=== PATIENT | female | born 1930 | race Caucasian/White ===

== ENCOUNTER 2017-12-26 10:06 | Day surgery (SDC) | payer MEDICARE, BC ==
[2017-12-21 12:41] LABS: BASOPHILS % (AUTO) 0.3 % (0-1); EOSINOPHILS # (AUTO) 0.2 X10'3 (0-0.9); EOSINOPHILS % (AUTO) 2.6 % (0-6); LYMPHOCYTES # (AUTO) 1.7 X10'3 (1.1-4.8); LYMPHOCYTES % (AUTO) 21.1 % (21-51); MEAN CORPUSCULAR HEMOGLOBIN 31.3 PG (27.0-31.0); MEAN CORPUSCULAR HGB CONC 33.4 % (33.0-36.5); MEAN CORPUSCULAR VOLUME 93.8 FL (78-98); MEAN PLATELET VOLUME 9.3 FL (7.4-10.4); MONOCYTES # (AUTO) 0.8 X10'3 (0-0.9); MONOCYTES % (AUTO) 9.8 % (2-12); NEUTROPHILS # (AUTO) 5.3 X10'3 (1.8-7.7); NEUTROPHILS % (AUTO) 66.2 % (42-75); PRE OP HEMATOCRIT 41.5 % (35.0-45.0); PRE OP HEMOGLOBIN 13.9 g/dL (12.0-16.0); PRE OP PLATELET COUNT 217 X10'3 (140-440); RED BLOOD COUNT 4.42 X10'6 (4.20-5.60); RED CELL DISTRIBUTION WIDTH 13.8 % (11.5-14.5)
[2017-12-21 12:52] LABS: ALBUMIN 3.8 G/DL (3.4-5.0); BLOOD UREA NITROGEN 22 MG/DL (7-18); BUN/CREATININE RATIO 20.8 (6.6-38.0); CHLORIDE 102 MMOL/L (99-107); CREATININE 1.06 MG/DL (0.40-0.90); PRE OP ANION GAP 8 (8-16); PRE OP GLUCOSE 90 MG/DL (70-104); PRE OP POTASSIUM 4.2 MMOL/L (3.4-5.1); PRE OP SODIUM 140 MMOL/L (135-145); TOTAL CARBON DIOXIDE 30.5 MMOL/L (24-32); eGFR 49 ML/MIN
[2017-12-21 13:05] LABS: PRE OP INR 1.1 INR
[2017-12-26] VITALS (14 sets, daily range): BP systolic 117–151; BP diastolic 63–83
[~2017-12-26] VITALS: Ht 165.1 cm; Wt 82.5 kg
[2017-12-26] MEDS ORDERED: DILT60TA41 PO (10:43)
[2017-12-26] MEDS ORDERED: MIDAZolam 5mg/ml 2ml vial IV ONE (10:55)
[2017-12-26] MEDS ORDERED: normal saline 1000ml 1,000 ML IV SCH (10:55)
[2017-12-26] MEDS ORDERED: fentaNYL/PF 50MCG/1 ML 2ML syringe IV ONE (10:55)
[2017-12-26] MEDS ORDERED: AMIO200T27 PO (11:06)
[2017-12-26] MEDS ORDERED: APIX5TAB3 PO (11:07)
[2017-12-26] MEDS ORDERED: MIRA25TA PO (11:08)
[2017-12-26] MEDS ORDERED: CALC-1197 PO (11:09)
== END 2017-12-26 14:45 | disposition home or self-care (01) ==
LOC: SSTAY O 10:06
PROVIDERS: ATTEND Internal Medicine Interventional Cardiology
DX: I48.0 Paroxysmal atrial fibrillation (principal); I49.1 Atrial premature depolarization; Z85.41 Personal history of malignant neoplasm of cervix uteri; Z85.3 Personal history of malignant neoplasm of breast; Z79.01 Long term (current) use of anticoagulants; Z88.2 Allergy status to sulfonamides; Z91.041 Radiographic dye allergy status; Z88.1 Allergy status to other antibiotic agents; Z87.891 Personal history of nicotine dependence; Z90.89 Acquired absence of other organs; Z72.89 Other problems related to lifestyle; Z86.79 Personal history of other diseases of the circulatory system; Z90.710 Acquired absence of both cervix and uterus; Z79.899 Other long term (current) drug therapy; Z98.890 Other specified postprocedural states
CPT/HCPCS: 36415; 80048; 85025; 85610; 85730; 92960; 93005; J2250; J3010; J7030; A4620

== ENCOUNTER 2019-07-11 20:14 | Emergency (ER) | payer MEDICARE, BC ==
[~2019-07-11] VITALS: Ht 162.6 cm; Wt 72.6 kg
[~2019-07-11 20:14] MED LIST: AMIO200T27 PO; APIX5TAB3 PO; CALC-1197 PO; DILT60TA41 PO; MIRA25TA PO
[2019-07-11 21:07] LABS: HEMATOCRIT 42.9 % (35.0-45.0); HEMOGLOBIN 14.1 g/dl (12.0-16.0); MEAN CORPUSCULAR HEMOGLOBIN 31.9 PG (27.0-31.0); MEAN CORPUSCULAR HGB CONC 32.9 g/dL (33.0-36.5); MEAN CORPUSCULAR VOLUME 96.9 FL (78-98); MEAN PLATELET VOLUME 9.8 FL (7.4-10.4); PLATELET COUNT 173 X10'3 (140-440); RED BLOOD COUNT 4.43 X10'6 (4.20-5.60); RED CELL DISTRIBUTION WIDTH 13.6 % (11.5-14.5); WHITE BLOOD COUNT 8.4 X10'3 (4.5-11.0)
[2019-07-11 21:17] LABS: CLARITY,URINE CLOUDY (Clear); COLOR,URINE YELLOW (Yellow); GLUCOSE, URINE NEGATIVE (Neg); KETONES,URINE NEGATIVE (Neg); LEUKOCYTE ESTERASE ,URINE TRACE (Neg); NITRITES, URINE NEGATIVE (Neg); OCCULT BLOOD,URINE LARGE (Neg); PROTEIN,URINE NEGATIVE (Neg); UROBILINOGEN,URINE 0.2 E.U/dL (0.2-1.0)
[2019-07-11 21:19] LABS: UA COLLECTION TYPE VOIDED
--- NOTE | 2019-07-11 21:20 | NUR ---
PER MD CEJA PT NO LONGER ON TRAUMA.
[2019-07-11 21:23] LABS: ALANINE AMINOTRANSFERASE 24 U/L (12-78); ALBUMIN 3.5 G/DL (3.4-5.0); ALBUMIN/GLOBULIN RATIO 0.9 (1.1-1.5); ALKALINE PHOSPHATASE 83 IU/L (46-116); ANION GAP 11 (8-16); ASPARTATE AMINO TRANSFERASE 25 U/L (10-37); BILIRUBIN,TOTAL 0.3 MG/DL (0.1-1.0); BLOOD UREA NITROGEN 20 MG/DL (7-18); BUN/CREATININE RATIO 18.9 (6.6-38.0); CHLORIDE 106 MMOL/L (99-107); CREATININE 1.06 MG/DL (0.40-0.90); GLUCOSE 119 MG/DL (70-104); SODIUM 141 MMOL/L (135-145); TOTAL CARBON DIOXIDE 24.2 MMOL/L (24-32); TOTAL PROTEIN 7.3 G/DL (6.4-8.2); eGFR 49 ML/MIN
[2019-07-11 21:24] LABS: BACTERIA,URINE NONE SEEN /HPF (Neg); MUCUS STRANDS NONE SEEN /LPF (Neg); RBC,URINE 50-100 /HPF (0-2); SQUAMOUS EPITHELIAL CELL,UR MODERATE /LPF (FEW); WBC,URINE 0-4 /HPF (0-4)
[2019-07-11 21:25] VITALS: BP 93/68
[2019-07-11 21:26] LABS: PARTIAL THROMBOPLASTIN TIME 22 SECONDS (22-32); POTASSIUM 4.3 MMOL/L (3.5-5.1)
[2019-07-11 21:27] LABS: ETHANOL 0.053 GM/DL (0.0-0.010); TROPONIN I < 0.04 NG/ML (0.0-0.05)
[2019-07-11 21:30] LABS: URINE AMPHETAMINE SCREEN NEGATIVE (Neg); URINE BARBITUATE SCREEN NEGATIVE (Neg); URINE BENZODIAZEPINES SCREEN NEGATIVE (Neg); URINE CANNABINOID SCREEN NEGATIVE (Neg); URINE COCAINE SCREEN NEGATIVE (Neg); URINE METHADONE SCREEN NEGATIVE (Neg); URINE OPIATE SCREEN NEGATIVE (Neg); URINE PHENCYCLIDINE SCREEN NEGATIVE (Neg)
[2019-07-11] MEDS ORDERED: HYDROcodone/acetaminophen 10/325mg tab PO ONE (21:35)
[2019-07-11 22:27] LABS: EOSINOPHILS % (MANUAL) 5 % (0-6); LYMPHOCYTES % (MANUAL) 23 % (21-51); MONOCYTES % (MANUAL) 18 % (2-12); NEUTROPHILS % (MANUAL) 54 % (42-75); TOTAL CELLS COUNTED 100
[2019-07-11 22:28] LABS: PLATELET ESTIMATE NORMAL
[2019-07-11] MEDS ORDERED: HYDR-4353 PO (22:34)
== END 2019-07-11 22:45 | disposition home or self-care (01) ==
LOC: ER 20:15
DX: S52.021A Displaced fracture of olecranon process without intraarticular extension of right ulna, initial encounter for closed fracture (principal); S80.01XA Contusion of right knee, initial encounter; S09.90XA Unspecified injury of head, initial encounter; I48.91 Unspecified atrial fibrillation; Z98.890 Other specified postprocedural states; Z90.710 Acquired absence of both cervix and uterus; Z86.73 Personal history of transient ischemic attack (TIA), and cerebral infarction without residual deficits; Z88.2 Allergy status to sulfonamides; Z88.1 Allergy status to other antibiotic agents; Z79.899 Other long term (current) drug therapy; W01.198A Fall on same level from slipping, tripping and stumbling with subsequent striking against other object, initial encounter; Y93.89 Activity, other specified; Y92.89 Other specified places as the place of occurrence of the external cause; Y99.9 Unspecified external cause status
CPT/HCPCS: 29105; 36415; 70450; 73030; 73080; 73564; 80053; 80305; 80320; 81001; 84484; 85007; 85027; 85610; 85730; 87088; 93005; 99284

== ENCOUNTER 2019-11-20 16:21 | Emergency (ER) | payer MEDICARE, BC ==
[~2019-11-20] VITALS: Ht 162.6 cm; Wt 73.6 kg
--- NOTE | 2019-11-20 17:09 | NUR ---
Patient ambulated to room with steady gait, daughter at bedside. Old dressing removed. Awaiting orders.
[2019-11-20] MEDS ORDERED: LIDOcaine 1% W/epiNEPHrine 1:200,000 10ml vial IJ ONE (17:30)
[2019-11-20] MEDS ORDERED: AMOX-422 PO (17:59)
[2019-11-20] MEDS ORDERED: DOXY100C76 PO (17:59)
[2019-11-20 18:12] VITALS: BP 138/90
--- NOTE | 2019-11-23 19:11 | NUR ---
CONTACTED PT WITH RECOMMENDATIONS TO STOP AUGMENTIN AND DOXYCYCLINE AND TO START CLINDAMYCIN 300 MG PO qID [id number] PRESCRIBED BY DR MERRITT CALLED IN TO [facility].
== END 2019-11-20 18:17 | disposition home or self-care (01) ==
LOC: ER 16:22
DX: L02.413 Cutaneous abscess of right upper limb (principal); I48.91 Unspecified atrial fibrillation; Z86.73 Personal history of transient ischemic attack (TIA), and cerebral infarction without residual deficits; Z98.890 Other specified postprocedural states; Z90.710 Acquired absence of both cervix and uterus; Z88.2 Allergy status to sulfonamides; Z88.1 Allergy status to other antibiotic agents; Z79.899 Other long term (current) drug therapy
CPT/HCPCS: 10060; 87070; 87077; 87186; 99284

== ENCOUNTER 2019-11-26 08:37 | Day surgery (SDC) | payer MEDICARE, BC ==
[~2019-11-26 08:37] MED LIST changes: +AMOX-422 PO; +DOXY100C76 PO
[2019-11-26] MEDS ORDERED: LIDOcaine 2% 5ml jelly ONE (09:21)
== END 2019-11-26 10:00 | disposition home or self-care (01) ==
LOC: WOUND CARE 08:37
PROVIDERS: ATTEND Nurse Practitioner Family
DX: T81.31XA Disruption of external operation (surgical) wound, not elsewhere classified, initial encounter (principal); L98.492 Non-pressure chronic ulcer of skin of other sites with fat layer exposed; H35.00 Unspecified background retinopathy; I48.91 Unspecified atrial fibrillation; Z87.891 Personal history of nicotine dependence; Z86.73 Personal history of transient ischemic attack (TIA), and cerebral infarction without residual deficits; Z85.41 Personal history of malignant neoplasm of cervix uteri; Z90.710 Acquired absence of both cervix and uterus; Z79.899 Other long term (current) drug therapy; Z98.890 Other specified postprocedural states; Y92.89 Other specified places as the place of occurrence of the external cause; Y83.8 Other surgical procedures as the cause of abnormal reaction of the patient, or of later complication, without mention of misadventure at the time of the procedure
CPT/HCPCS: 97597

== ENCOUNTER 2019-11-29 09:25 | Day surgery (SDC) | payer MEDICARE, BC ==
[2019-11-29] MEDS ORDERED: LIDOcaine 2% 5ml jelly ONE (10:08)
== END 2019-11-29 11:06 | disposition home or self-care (01) ==
LOC: WOUND CARE 09:25
PROVIDERS: ATTEND Surgery
DX: T81.31XD Disruption of external operation (surgical) wound, not elsewhere classified, subsequent encounter (principal); L98.492 Non-pressure chronic ulcer of skin of other sites with fat layer exposed; H35.00 Unspecified background retinopathy; I48.91 Unspecified atrial fibrillation; Z87.891 Personal history of nicotine dependence; Z86.73 Personal history of transient ischemic attack (TIA), and cerebral infarction without residual deficits; Z85.41 Personal history of malignant neoplasm of cervix uteri; Z90.710 Acquired absence of both cervix and uterus; Z79.899 Other long term (current) drug therapy; Z98.890 Other specified postprocedural states; Y83.8 Other surgical procedures as the cause of abnormal reaction of the patient, or of later complication, without mention of misadventure at the time of the procedure
CPT/HCPCS: 73070; 97597

== ENCOUNTER 2019-12-05 09:25 | Day surgery (SDC) | payer MEDICARE, BC ==
[~2019-12-05 09:25] MED LIST changes: -AMOX-422 PO; -DOXY100C76 PO
== END 2019-12-05 11:04 | disposition home or self-care (01) ==
LOC: WOUND CARE 09:25
PROVIDERS: ATTEND Surgery
DX: T81.31XD Disruption of external operation (surgical) wound, not elsewhere classified, subsequent encounter (principal); L98.492 Non-pressure chronic ulcer of skin of other sites with fat layer exposed; H35.00 Unspecified background retinopathy; I48.91 Unspecified atrial fibrillation; Z87.891 Personal history of nicotine dependence; Z86.73 Personal history of transient ischemic attack (TIA), and cerebral infarction without residual deficits; Z85.41 Personal history of malignant neoplasm of cervix uteri; Z90.710 Acquired absence of both cervix and uterus; Z79.899 Other long term (current) drug therapy; Z98.890 Other specified postprocedural states; Y83.8 Other surgical procedures as the cause of abnormal reaction of the patient, or of later complication, without mention of misadventure at the time of the procedure
CPT/HCPCS: 97597

== ENCOUNTER 2019-12-13 10:00 | Day surgery (SDC) | payer MEDICARE, BC ==
[2019-12-13] MEDS ORDERED: LIDOcaine 2% 5ml jelly ONE (10:38)
== END 2019-12-13 11:36 | disposition home or self-care (01) ==
LOC: WOUND CARE 10:00
PROVIDERS: ATTEND Surgery
DX: T81.31XD Disruption of external operation (surgical) wound, not elsewhere classified, subsequent encounter (principal); L98.492 Non-pressure chronic ulcer of skin of other sites with fat layer exposed; L02.818 Cutaneous abscess of other sites; H35.00 Unspecified background retinopathy; I48.91 Unspecified atrial fibrillation; Z87.891 Personal history of nicotine dependence; Z86.73 Personal history of transient ischemic attack (TIA), and cerebral infarction without residual deficits; Z85.41 Personal history of malignant neoplasm of cervix uteri; Z90.710 Acquired absence of both cervix and uterus; Z79.899 Other long term (current) drug therapy; Z98.890 Other specified postprocedural states; Y83.8 Other surgical procedures as the cause of abnormal reaction of the patient, or of later complication, without mention of misadventure at the time of the procedure
CPT/HCPCS: 97597; A4663; A6154; A6212

== ENCOUNTER 2019-12-25 08:30 | Day surgery (SDC) | payer MEDICARE, BC ==
[2019-12-25] MEDS ORDERED: LIDOcaine/PRILOcaine 5gm cream TP ONE (09:18)
== END 2019-12-25 10:18 | disposition home or self-care (01) ==
LOC: WOUND CARE 08:30
PROVIDERS: ATTEND Surgery
DX: T81.31XD Disruption of external operation (surgical) wound, not elsewhere classified, subsequent encounter (principal); L98.492 Non-pressure chronic ulcer of skin of other sites with fat layer exposed; L02.818 Cutaneous abscess of other sites; H35.00 Unspecified background retinopathy; I48.91 Unspecified atrial fibrillation; Z87.891 Personal history of nicotine dependence; Z86.73 Personal history of transient ischemic attack (TIA), and cerebral infarction without residual deficits; Z85.41 Personal history of malignant neoplasm of cervix uteri; Z90.710 Acquired absence of both cervix and uterus; Z79.899 Other long term (current) drug therapy; Z98.890 Other specified postprocedural states; Y83.8 Other surgical procedures as the cause of abnormal reaction of the patient, or of later complication, without mention of misadventure at the time of the procedure
CPT/HCPCS: 97597

== ENCOUNTER 2019-12-31 05:41 | Day surgery (SDC) | payer MEDICARE, BC ==
[2019-12-27 16:14] LABS: BASOPHILS % (AUTO) 0.7 % (0-1); EOSINOPHILS # (AUTO) 0.2 X10'3 (0-0.9); EOSINOPHILS % (AUTO) 2.3 % (0-6); LYMPHOCYTES # (AUTO) 1.5 X10'3 (1.1-4.8); LYMPHOCYTES % (AUTO) 21.9 % (21-51); MEAN CORPUSCULAR HEMOGLOBIN 30.6 PG (27.0-31.0); MEAN CORPUSCULAR VOLUME 92.7 FL (78-98); MEAN PLATELET VOLUME 9.9 FL (7.4-10.4); MONOCYTES # (AUTO) 0.9 X10'3 (0-0.9); MONOCYTES % (AUTO) 13.2 % (2-12); NEUTROPHILS # (AUTO) 4.2 X10'3 (1.8-7.7); NEUTROPHILS % (AUTO) 61.9 % (42-75); PRE OP HEMATOCRIT 41.5 % (35.0-45.0); PRE OP HEMOGLOBIN 13.7 g/dL (12.0-16.0); PRE OP PLATELET COUNT 214 X10'3 (140-440); RED BLOOD COUNT 4.47 X10'6 (4.20-5.60); RED CELL DISTRIBUTION WIDTH 13.9 % (11.5-14.5)
[2019-12-27 16:29] LABS: PRE OP INR 1.1 INR; PRE OP PROTIME 11.5 SECONDS (9.0-12.0)
[2019-12-27 16:35] LABS: ALBUMIN 3.7 G/DL (3.4-5.0); ALBUMIN/GLOBULIN RATIO 0.9 (1.1-1.5); ALKALINE PHOSPHATASE 86 IU/L (46-116); BLOOD UREA NITROGEN 23 MG/DL (7-18); BUN/CREATININE RATIO 21.7 (6.6-38.0); CHLORIDE 105 MMOL/L (99-107); CREATININE 1.06 MG/DL (0.40-0.90); PRE OP ALT 21 U/L (30-65); PRE OP ANION GAP 4 (8-16); PRE OP AST 21 U/L (10-37); PRE OP BILIRUB, TOTAL 0.4 MG/DL (0.0-1.0); PRE OP GLUCOSE 97 MG/DL (70-104); PRE OP POTASSIUM 4.1 MMOL/L (3.4-5.1); PRE OP SODIUM 142 MMOL/L (135-145); TOTAL PROTEIN 7.6 G/DL (6.4-8.2); eGFR 49 ML/MIN
[~2019-12-31] VITALS: Ht 162.6 cm; Wt 73.3 kg
[2019-12-31] VITALS (16 sets, daily range): BP systolic 111–157; BP diastolic 60–83
[~2019-12-31 05:41] MED LIST changes: -AMIO200T27 PO
[2019-12-31] MEDS ORDERED: CLINDAmcin 900mg/NS 50ml IVPB 50 ML IV ONE (06:10)
[2019-12-31] MEDS ORDERED: normal saline 1000ml 1,000 ML IV SCH (06:10)
[2019-12-31] MEDS ORDERED: vancomycin/NS 1 GM ADD-VANTAGE 250 ML IV ONE (06:10)
[2019-12-31] MEDS ORDERED: LIDOcaine 1% (10mg/ml) 2ml vial ONE (06:35)
[2019-12-31] MEDS ORDERED: sevoflurane 250ml liquid IH ONE (07:10)
[2019-12-31] MEDS ORDERED: fentaNYL/PF 50MCG/1 ML 2ML syringe ONE (07:12)
[2019-12-31] MEDS ORDERED: midazolam 2 mg/2 ml injection ONE (07:15)
[2019-12-31] MEDS ORDERED: propofol inj 20 ML IV ONE (07:29)
[2019-12-31] MEDS ORDERED: LIDOcaine 2% (20mg/ml) 5ml vial ONE (07:29)
[2019-12-31] MEDS ORDERED: ROPIVAcaine 0.5% (5mg/ml) 30ml vial ONE (07:30)
[2019-12-31] MEDS ORDERED: ondansetron/PF 4mg/2ml inj ONE (07:32)
[2019-12-31] MEDS ORDERED: dexamethasone sod phosphate 4mg/ml inj. ONE (07:32)
[2019-12-31] MEDS ORDERED: vancomycin 1,000mg inj ONE (07:51)
[2019-12-31] MEDS ORDERED: meperidine/PF 25mg/ml syringe IV PRN ×3 (08:10)
[2019-12-31] MEDS ORDERED: morphine 4 MG/ML inj SYRINge IV PRN (08:10)
[2019-12-31] MEDS ORDERED: proCHLORperazine 10 MG/2 ml inj IV PRN (08:10)
[2019-12-31] MEDS ORDERED: morphine 2 MG/ML inj. syringe IV PRN (08:10)
[2019-12-31] MEDS ORDERED: ondansetron/PF 4mg/2ml inj IV PRN (08:10)
[2019-12-31] MEDS ORDERED: ringers solution, lacted 1,000 ML IV SCH ×2 (08:10→14:00)
[2019-12-31] MEDS ORDERED: acetaminophen 1,000mg/100ml IV 100 ML IV PRN (08:10)
--- NOTE | 2019-12-31 08:13 | NUR ---
Received from OR via [facility], accompanied by Anesthesiologist DR GONSALEZ and report given by Anesthesiologist. PT VERY DROWSY, NO S/S OF DISTRESS/DISCOMFORT, RIGHT ARM (FINGERS TO ABOVE ELBOW W/SPLINT AND ABDIRAHMAN WRAP COVERING CDI, FINGERS PWD, SPIKE MAKER 1-2 SECONDS.) Addendum: 12/31/19 at 0902 by Viki Cook RN Amended: Links added.
[2019-12-31] MEDS ORDERED: naloxone 0.4 mg/ml inj ONE (08:26)
--- NOTE | 2019-12-31 11:33 | NUR ---
PT UP TO VOID X 2, DEMONSTRATES COMFORT, NAUSEA SUBSIDED, D/C INSTRUCTIONS GIVEN AND GONE OVER W/PT AND PTS DAUGHTER WHOM VERBALIZE UNDERSTANDING, PT D/CD TO HOME VIA W/C TO PRIVATE VEHICLE W/O INCIDENT. Addendum: 12/31/19 at 1202 by Viki Cook RN Amended: Links added.
[2019-12-31] MEDS ORDERED: famotidine 20mg tablet PO ONE (14:00)
== END 2019-12-31 11:33 | disposition home or self-care (01) ==
LOC: PAS 05:41
PROVIDERS: ATTEND Orthopaedic Surgery
DX: T84.69XA Infection and inflammatory reaction due to internal fixation device of other site, initial encounter (principal); I48.91 Unspecified atrial fibrillation; Z87.891 Personal history of nicotine dependence; G89.18 Other acute postprocedural pain; Z98.890 Other specified postprocedural states; Z90.710 Acquired absence of both cervix and uterus; Z88.2 Allergy status to sulfonamides; Z88.8 Allergy status to other drugs, medicaments and biological substances; Z91.041 Radiographic dye allergy status; Z79.899 Other long term (current) drug therapy; Z85.41 Personal history of malignant neoplasm of cervix uteri; Y83.8 Other surgical procedures as the cause of abnormal reaction of the patient, or of later complication, without mention of misadventure at the time of the procedure; Y92.89 Other specified places as the place of occurrence of the external cause
CPT/HCPCS: 20680; 36415; 64417; 71046; 80053; 82948; 85025; 85610; 85730; 87070; 87075; 87186; J1100; J2001; J2250; J2310; J2405; J2704; J3010; J3370; 87077; A4618; A6449; A7000; J2795; J7120